=== PATIENT | male | born 1940 | race Caucasian/White ===

== ENCOUNTER 2022-07-06 17:41 | Emergency (ER) | payer OTHER ==
[~2022-07-06] VITALS: Ht 170.2 cm; Wt 86.4 kg
[2022-07-06] MEDS ORDERED: ACETAMINOPHEN 325 MG TAB PO ONE (17:55)
[2022-07-06 19:05] VITALS: BP 151/96
[2022-07-06] MEDS ORDERED: LIDOCAINE 5% (LIDODERM) PATCH TD ONE (19:45)
[2022-07-06] MEDS ORDERED: traMADol 50 MG TAB PO ONE (19:55)
[2022-07-06] MEDS ORDERED: traMADol 50 MG TAB (HOME DOSE PACK) PO ONE (20:05)
[2022-07-06] MEDS ORDERED: TRAM50TA2 PO (20:09)
[2022-07-06] MEDS ORDERED: LIDO5DIS41 TOP (20:09)
[2022-07-06] MEDS ORDERED: **NOTE PATIENT COMMENT** MISC XX SCH (21:00)
== END 2022-07-06 20:25 | disposition home or self-care (01) ==
LOC: EDBD 17:41 → M ED 17:41
DX: S22.41XA Multiple fractures of ribs, right side, initial encounter for closed fracture (principal); S20.211A Contusion of right front wall of thorax, initial encounter; W18.30XA Fall on same level, unspecified, initial encounter; Y92.018 Other place in single-family (private) house as the place of occurrence of the external cause; I10 Essential (primary) hypertension; E78.9 Disorder of lipoprotein metabolism, unspecified

== ENCOUNTER 2022-11-29 17:44 | Inpatient (IN) | payer MEDICARE ==
[~2022-11-29] VITALS: Ht 170.2 cm; Wt 81.1 kg
[~2022-11-29 17:44] MED LIST: LIDO5DIS41 TOP; TRAM50TA2 PO
[2022-11-29] MEDS ORDERED: ASPI81CH33 PO (18:09)
[2022-11-29] MEDS ORDERED: AMLO1TAB24 PO (18:09)
[2022-11-29] MEDS ORDERED: LISI20TA33 PO (18:09)
[2022-11-29] MEDS ORDERED: MELO7.5T35 PO (18:09)
[2022-11-29] MEDS ORDERED: ATOR40TA75 PO (18:09)
[2022-11-29] MEDS ORDERED: cloNIDine 0.1MG TABLET PO SCH (21:00)
[2022-11-29 21:30] LABS: BASO # 0.1 10^3/uL (0.0-0.2); BASO % 0.6 % (0.0-1.0); EOS # 0.2 10^3/uL (0.0-0.5); EOS % 2.3 % (0.0-3.0); HEMATOCRIT 32.2 % (42.0-52.0); HEMOGLOBIN 10.4 g/dl (13.5-17.5); LYMPH # 1.4 10^3/uL (1.5-5.0); MEAN CORPUSCULAR HEMOGLOBIN 27.7 pg (27.0-33.0); MEAN CORPUSCULAR HGB CONC 32.3 g/dl (32.0-36.5); MEAN CORPUSCULAR VOLUME 85.6 fl (80.0-96.0); MONO # 0.6 10^3/uL (0.0-0.8); MONO % 6.8 % (2.0-8.0); NEUTROPHILS # 6.3 10^3/uL (1.5-8.5); NEUTROPHILS % 73.5 % (36.0-66.0); PLATELET COUNT, AUTOMATED 306 10^3/uL (150-450); RED BLOOD COUNT 3.76 10^6/uL (4.30-6.10); WHITE BLOOD COUNT 8.6 10^3/uL (4.0-10.0)
[2022-11-29] MEDS ORDERED: NS 1,000 ML IV SCH (21:35)
[2022-11-29 21:58] LABS: ALBUMIN 3.3 G/DL (3.2-5.2); BILIRUBIN,DIRECT 0.1 MG/DL (<0.4); BILIRUBIN,TOTAL 0.4 MG/DL (0.3-1.2); CALCIUM LEVEL 8.5 MG/DL (8.3-10.6); CREATININE FOR GFR 5.78 MG/DL (0.70-1.30); GLOMERULAR FILTRATION RATE 10.1 (>35); POTASSIUM SERUM 4.4 MMOL/L (3.5-5.1); TOTAL PROTEIN 6.6 G/DL (5.7-8.2)
[2022-11-29 22:18] LABS: APPEARANCE, URINE MANUAL CLEAR (CLEAR); COLOR, URINE MANUAL YELLOW (YELLOW)
[2022-11-29 22:19] LABS: BILIRUBIN, URINE MANUAL NEGATIVE (NEGATIVE); BLOOD URINE MANUAL POSITIVE (NEGATIVE); GLUCOSE, URINE (UA) MANUAL NEGATIVE (NEGATIVE); KETONE, URINE MANUAL NEGATIVE (NEGATIVE); NITRITE, URINE MANUAL NEGATIVE (NEGATIVE); PH,URINE MAN 5.5 UNITS (5.0 - 7.0); PROTEIN, URINE MANUAL 2+ mg/dL (NEGATIVE); UROBILINOGEN, URINE MANUAL NORMAL (NORMAL)
[2022-11-29 22:20] LABS: LEUKOCYTE ESTERASE, URINE MAN NEGATIVE (NEGATIVE)
[2022-11-29 22:27] LABS: RBC, URINE TNTC /hpf (0-3)
[2022-11-29 22:28] LABS: GRANULAR CAST, URINE 0-1 /lpf; WBC, URINE 15-20 /hpf (0-3)
[2022-11-29 22:29] LABS: SQUAMOUS EPITHELIAL CELL URINE NONE SEEN /hpf (SMALL AMT)
[2022-11-29 22:30] LABS: HYALINE CAST, URINE NONE SEEN /lpf (0-1); MUCUS, URINE SMALL AMOUNT (NEGATIVE)
[2022-11-29 22:31] LABS: BACTERIA, URINE MOD AMOUNT
[2022-11-29 22:34] LABS: AMORPHOUS SEDIMENT, URINE SMALL AMOUNT (NEGATIVE)
[2022-11-29 23:06] LABS: RSV AMPLIFICATION NEGATIVE (NEGATIVE)
[2022-11-29] MEDS ORDERED: amLODIPine 5 MG TAB PO ONE (23:55)
[2022-11-30] MEDS ORDERED: NEXI1CAP4 PO (00:55)
[2022-11-30] MEDS ORDERED: DIPH-435 PO (00:55)
[2022-11-30] MEDS ORDERED: HOME MED LIST COMPLETE! XX SCH (01:00)
[2022-11-30] MEDS ORDERED: LABETALOL 100MG/20ML VIAL IV STA (01:43)
[2022-11-30] MEDS ORDERED: NS 1,000 ML IV SCH (01:45)
[2022-11-30 06:41] LABS: ALBUMIN 3.1 G/DL (3.2-5.2); BILIRUBIN,TOTAL 0.4 MG/DL (0.3-1.2); CALCIUM LEVEL 8.1 MG/DL (8.3-10.6); CREATININE FOR GFR 5.72 MG/DL (0.70-1.30); GLOMERULAR FILTRATION RATE 10.2 (>35); POTASSIUM SERUM 4.5 MMOL/L (3.5-5.1)
[2022-11-30 07:11] LABS: BASO # 0.1 10^3/uL (0.0-0.2); BASO % 0.7 % (0.0-1.0); EOS # 0.2 10^3/uL (0.0-0.5); EOS % 2.8 % (0.0-3.0); HEMATOCRIT 31.8 % (42.0-52.0); HEMOGLOBIN 10.2 g/dl (13.5-17.5); LYMPH % 14.1 % (24.0-44.0); MEAN CORPUSCULAR HEMOGLOBIN 27.8 pg (27.0-33.0); MEAN CORPUSCULAR HGB CONC 32.1 g/dl (32.0-36.5); MEAN CORPUSCULAR VOLUME 86.6 fl (80.0-96.0); MONO # 0.6 10^3/uL (0.0-0.8); NEUTROPHILS # 5.2 10^3/uL (1.5-8.5); NEUTROPHILS % 73.7 % (36.0-66.0); PLATELET COUNT, AUTOMATED 274 10^3/uL (150-450); RED BLOOD COUNT 3.67 10^6/uL (4.30-6.10); WHITE BLOOD COUNT 7.1 10^3/uL (4.0-10.0)
[2022-11-30] MEDS: cloNIDine 0.1MG TABLET PO SCH ×2 (10:27→20:18)
[2022-11-30] MEDS: ATORVASTATIN 20 MG TAB PO SCH (10:28)
[2022-11-30] MEDS: ASPIRIN 81MG CHEW TABLET PO SCH (10:28)
[2022-11-30] MEDS: HEPARIN SOD (PORCINE) 5000UNITS/ML 1ML VIAL/SYRINGE SC SCH ×2 (10:33→20:18)
[2022-11-30] MEDS: OMEPRAZOLE 20MG CAP PO SCH (10:34)
[2022-11-30 11:52] LABS: COMPLEMENT C3 93.6 MG/DL (90.0-170.0); COMPLEMENT C4 38.3 MG/DL (12-36)
[2022-11-30 15:00] VITALS: BP 147/67
[2022-11-30 16:00] VITALS: BP 133/62
[2022-11-30] MEDS ORDERED: amLODIPine 5 MG TAB PO SCH (17:00)
[2022-11-30 19:43] VITALS: BP 119/66
[2022-11-30 23:27] VITALS: BP 110/53
[2022-12-01 03:58] VITALS: BP 127/55
[2022-12-01 04:23] LABS: BASO % 0.4 % (0.0-1.0); EOS # 0.4 10^3/uL (0.0-0.5); EOS % 5.2 % (0.0-3.0); HEMATOCRIT 27.1 % (42.0-52.0); HEMOGLOBIN 8.6 g/dl (13.5-17.5); LYMPH # 1.1 10^3/uL (1.5-5.0); MEAN CORPUSCULAR HEMOGLOBIN 27.5 pg (27.0-33.0); MEAN CORPUSCULAR HGB CONC 31.7 g/dl (32.0-36.5); MEAN CORPUSCULAR VOLUME 86.6 fl (80.0-96.0); MONO # 0.7 10^3/uL (0.0-0.8); MONO % 9.9 % (2.0-8.0); NEUTROPHILS # 4.5 10^3/uL (1.5-8.5); NEUTROPHILS % 67.8 % (36.0-66.0); PLATELET COUNT, AUTOMATED 253 10^3/uL (150-450); RED BLOOD COUNT 3.13 10^6/uL (4.30-6.10); WHITE BLOOD COUNT 6.7 10^3/uL (4.0-10.0)
[2022-12-01 04:54] LABS: CALCIUM LEVEL 7.4 MG/DL (8.3-10.6); CREATININE FOR GFR 5.58 MG/DL (0.70-1.30); GLOMERULAR FILTRATION RATE 10.5 (>35); MAGNESIUM LEVEL 1.5 MG/DL (1.8-2.4); POTASSIUM SERUM 4.5 MMOL/L (3.5-5.1)
[2022-12-01 05:11] LABS: CHLORIDE,RANDOM URINE 82 MMOL/L; SODIUM,RANDOM URINE 88 MMOL/L
[2022-12-01 05:18] LABS: UREA NITROGEN RANDOM URINE 475 MG/DL
[2022-12-01 05:20] LABS: CREATININE,RANDOM URINE 98.8 MG/DL
[2022-12-01 05:23] LABS: TOTAL PROTEIN,RANDOM URINE 143.9 MG/DL (0.0-14.0)
[2022-12-01] MEDS ORDERED: MAG SULF 1GM/100ML (MAG RUN) 1 GM in IV 1 EA IV ONE ×2 (07:00→09:00)
[2022-12-01 07:50] VITALS: BP 129/65
[2022-12-01] MEDS: OMEPRAZOLE 20MG CAP PO SCH (07:51)
[2022-12-01] MEDS: ASPIRIN 81MG CHEW TABLET PO SCH (07:51)
[2022-12-01] MEDS: ATORVASTATIN 20 MG TAB PO SCH (07:51)
[2022-12-01] MEDS: ACETAMINOPHEN TAB 650MG DOSE (2X325MG) PO PRN (07:51)
[2022-12-01] MEDS: cloNIDine 0.1MG TABLET PO SCH ×2 (07:52→20:11)
[2022-12-01] MEDS: HEPARIN SOD (PORCINE) 5000UNITS/ML 1ML VIAL/SYRINGE SC SCH ×2 (07:52→20:11)
[2022-12-01 09:14] LABS: INR 1.07; PROTHROMBIN TIME 14.1 SECONDS (12.5-14.5)
[2022-12-01 09:27] LABS: COLLAGEN EPINEPHRINE 103 SECONDS (74-162)
[2022-12-01 11:57] VITALS: BP_SYST 103; BP_SYST 88; BP_DIAS 54
[2022-12-01 16:00] VITALS: BP 125/60
[2022-12-01 20:00] VITALS: BP 124/62
[2022-12-02 00:06] VITALS: BP 124/63
[2022-12-02 03:52] VITALS: BP 137/71
[2022-12-02 05:04] LABS: BASO % 0.3 % (0.0-1.0); EOS # 0.3 10^3/uL (0.0-0.5); EOS % 4.2 % (0.0-3.0); HEMATOCRIT 28.3 % (42.0-52.0); LYMPH # 1.1 10^3/uL (1.5-5.0); LYMPH % 15.5 % (24.0-44.0); MEAN CORPUSCULAR HEMOGLOBIN 27.7 pg (27.0-33.0); MEAN CORPUSCULAR HGB CONC 31.8 g/dl (32.0-36.5); MEAN CORPUSCULAR VOLUME 87.1 fl (80.0-96.0); MONO # 0.6 10^3/uL (0.0-0.8); MONO % 7.7 % (2.0-8.0); NEUTROPHILS # 5.1 10^3/uL (1.5-8.5); NEUTROPHILS % 71.6 % (36.0-66.0); PLATELET COUNT, AUTOMATED 258 10^3/uL (150-450); RED BLOOD COUNT 3.25 10^6/uL (4.30-6.10); WHITE BLOOD COUNT 7.1 10^3/uL (4.0-10.0)
[2022-12-02 05:37] LABS: BLOOD UREA NITROGEN 61 MG/DL (9-23); CALCIUM LEVEL 7.6 MG/DL (8.3-10.6); CARBON DIOXIDE LEVEL 19 MMOL/L (20-31); CHLORIDE LEVEL 110 MMOL/L (98-107); GLOMERULAR FILTRATION RATE 9.8 (>35); GLUCOSE, FASTING 86 MG/DL (74-106); MAGNESIUM LEVEL 1.9 MG/DL (1.8-2.4); POTASSIUM SERUM 4.7 MMOL/L (3.5-5.1); SODIUM LEVEL 139 MMOL/L (136-145)
[2022-12-02 05:59] LABS: ALBUMIN 2.7 G/DL (3.2-5.2); BILIRUBIN,DIRECT 0.1 MG/DL (<0.4); BILIRUBIN,TOTAL 0.3 MG/DL (0.3-1.2); TOTAL PROTEIN 5.4 G/DL (5.7-8.2)
[2022-12-02] MEDS ORDERED: HEPARIN 1,000UNITS/ML 10ML VIAL (FOR RADIOLOGY & DIALYSIS ONLY) IV PRN (06:50)
[2022-12-02] MEDS ORDERED: HEPARIN 1,000UNITS/ML 10ML VIAL (FOR RADIOLOGY & DIALYSIS ONLY) XX SCH (06:50)
[2022-12-02] MEDS ORDERED: SODIUM CHLORIDE 0.9% 1000ML IV PRN (06:50)
[2022-12-02 07:45] VITALS: BP 144/69
[2022-12-02] MEDS: cloNIDine 0.1MG TABLET PO SCH ×2 (08:19→20:08)
[2022-12-02] MEDS: OMEPRAZOLE 20MG CAP PO SCH (08:20)
[2022-12-02] MEDS: ATORVASTATIN 20 MG TAB PO SCH (08:20)
[2022-12-02] MEDS: HEPARIN SOD (PORCINE) 5000UNITS/ML 1ML VIAL/SYRINGE SC SCH ×2 (08:21→20:09)
[2022-12-02 08:26] LABS: CLOSTRIDIUM DIFFICILE PCR NEGATIVE (NEGATIVE)
[2022-12-02 08:59] LABS: PERCENT SATURATION 18.4 % (19.7-50.0)
[2022-12-02 11:04] LABS: HEPATITIS B SURFACE ANTIBODY POSITIVE (POSITIVE)
[2022-12-02 11:15] LABS: HEPATITIS B SURFACE ANTIGEN NEGATIVE (NEGATIVE)
[2022-12-02 11:36] LABS: HEPATITIS B CORE ANTIBODY IGM NEGATIVE (NEGATIVE)
[2022-12-02 11:54] VITALS: BP 129/60
[2022-12-02] MEDS ORDERED: fentaNYL 100 MCG/2 ML INJECTION As Ordered ONE (15:58)
[2022-12-02] MEDS ORDERED: HEPARIN 1,000UNITS/ML 10ML VIAL (FOR RADIOLOGY & DIALYSIS ONLY) As Ordered ONE (15:58)
[2022-12-02] MEDS ORDERED: MIDAZOLAM INJ 2MG/2ML VIAL As Ordered ONE (15:58)
[2022-12-02] MEDS ORDERED: LIDOCAINE 1% MDV 20ML VIAL As Ordered ONE (15:59)
[2022-12-02] MEDS ORDERED: ceFAZolin SOD 2 GM in IV 1 EA IV ONE (16:00)
[2022-12-02] MEDS ORDERED: ceFAZolin 2 GM/D5W 50 ML IV BAG As Ordered ONE (16:02)
[2022-12-02] MEDS ORDERED: ISOVUE-300 61% 100ML VIAL As Ordered ONE (16:35)
[2022-12-02 18:00] VITALS: BP 140/73
[2022-12-02 20:07] VITALS: BP 139/71
[2022-12-02] MEDS: ACETAMINOPHEN TAB 650MG DOSE (2X325MG) PO PRN (20:09)
[2022-12-03 00:51] VITALS: BP 124/60
[2022-12-03 04:53] VITALS: BP 120/56
[2022-12-03] MEDS: OMEPRAZOLE 20MG CAP PO SCH (06:04)
[2022-12-03 06:05] LABS: BASO % 0.5 % (0.0-1.0); EOS # 0.3 10^3/uL (0.0-0.5); EOS % 4.5 % (0.0-3.0); HEMATOCRIT 28.9 % (42.0-52.0); HEMOGLOBIN 9.2 g/dl (13.5-17.5); LYMPH # 1.1 10^3/uL (1.5-5.0); LYMPH % 16.3 % (24.0-44.0); MEAN CORPUSCULAR HEMOGLOBIN 27.7 pg (27.0-33.0); MEAN CORPUSCULAR HGB CONC 31.8 g/dl (32.0-36.5); MONO # 0.5 10^3/uL (0.0-0.8); MONO % 7.8 % (2.0-8.0); NEUTROPHILS # 4.5 10^3/uL (1.5-8.5); NEUTROPHILS % 70.1 % (36.0-66.0); PLATELET COUNT, AUTOMATED 239 10^3/uL (150-450); RED BLOOD COUNT 3.32 10^6/uL (4.30-6.10); WHITE BLOOD COUNT 6.4 10^3/uL (4.0-10.0)
[2022-12-03] MEDS: ATORVASTATIN 20 MG TAB PO SCH (06:06)
[2022-12-03] MEDS: HEPARIN SOD (PORCINE) 5000UNITS/ML 1ML VIAL/SYRINGE SC SCH ×2 (06:08→20:32)
[2022-12-03] MEDS: cloNIDine 0.1MG TABLET PO SCH ×2 (06:11→20:31)
[2022-12-03] MEDS: ACETAMINOPHEN TAB 650MG DOSE (2X325MG) PO PRN (06:11)
[2022-12-03] MEDS ORDERED: SODIUM CHLORIDE 0.9% 1000ML IV PRN (06:45)
[2022-12-03] MEDS ORDERED: HEPARIN 1,000UNITS/ML 10ML VIAL (FOR RADIOLOGY & DIALYSIS ONLY) XX SCH (06:45)
[2022-12-03] MEDS ORDERED: HEPARIN 1,000UNITS/ML 10ML VIAL (FOR RADIOLOGY & DIALYSIS ONLY) IV PRN (06:45)
[2022-12-03 07:28] VITALS: BP 107/57
[2022-12-03 08:55] LABS: CALCIUM LEVEL 8.3 MG/DL (8.3-10.6); CREATININE FOR GFR 6.04 MG/DL (0.70-1.30); GLOMERULAR FILTRATION RATE 9.6 (>35); MAGNESIUM LEVEL 1.7 MG/DL (1.8-2.4); POTASSIUM SERUM 4.8 MMOL/L (3.5-5.1)
[2022-12-03 12:00] VITALS: BP 129/65
[2022-12-03 16:00] VITALS: BP 124/65
[2022-12-03 17:08] LABS: FREE KAPPA LIGHT CHAINS SERUM 121.1 mg/L (3.3-19.4); FREE LAMBDA LIGHT CHAINS SERUM 64.7 mg/L (5.7-26.3); KAPPA/LAMBDA RATIO SERUM 1.87 (0.26-1.65)
[2022-12-03 20:00] VITALS: BP_SYST 142; BP_DIAS 67; BP_DIAS 92
[2022-12-04] VITALS: BP 128/71
[2022-12-04 04:25] VITALS: BP 127/65
[2022-12-04 05:15] LABS: BASO # 0.1 10^3/uL (0.0-0.2); BASO % 0.6 % (0.0-1.0); EOS # 0.4 10^3/uL (0.0-0.5); EOS % 4.5 % (0.0-3.0); HEMATOCRIT 29.3 % (42.0-52.0); HEMOGLOBIN 9.2 g/dl (13.5-17.5); LYMPH # 1.4 10^3/uL (1.5-5.0); LYMPH % 17.8 % (24.0-44.0); MEAN CORPUSCULAR HEMOGLOBIN 27.6 pg (27.0-33.0); MEAN CORPUSCULAR HGB CONC 31.4 g/dl (32.0-36.5); MONO # 0.7 10^3/uL (0.0-0.8); MONO % 8.6 % (2.0-8.0); NEUTROPHILS # 5.3 10^3/uL (1.5-8.5); NEUTROPHILS % 67.9 % (36.0-66.0); PLATELET COUNT, AUTOMATED 238 10^3/uL (150-450); RED BLOOD COUNT 3.33 10^6/uL (4.30-6.10); WHITE BLOOD COUNT 7.8 10^3/uL (4.0-10.0)
[2022-12-04 05:37] LABS: CALCIUM LEVEL 8.1 MG/DL (8.3-10.6); CREATININE FOR GFR 5.33 MG/DL (0.70-1.30); GLOMERULAR FILTRATION RATE 11.1 (>35); MAGNESIUM LEVEL 1.6 MG/DL (1.8-2.4); POTASSIUM SERUM 4.3 MMOL/L (3.5-5.1)
[2022-12-04] MEDS: ATORVASTATIN 20 MG TAB PO SCH (05:40)
[2022-12-04] MEDS: OMEPRAZOLE 20MG CAP PO SCH (05:41)
[2022-12-04] MEDS: cloNIDine 0.1MG TABLET PO SCH ×2 (05:44→20:33)
[2022-12-04] MEDS: HEPARIN SOD (PORCINE) 5000UNITS/ML 1ML VIAL/SYRINGE SC SCH (05:45)
[2022-12-04] MEDS ORDERED: HEPARIN 1,000UNITS/ML 10ML VIAL (FOR RADIOLOGY & DIALYSIS ONLY) XX SCH (06:50)
[2022-12-04] MEDS ORDERED: SODIUM CHLORIDE 0.9% 1000ML IV PRN (06:50)
[2022-12-04] MEDS ORDERED: HEPARIN 1,000UNITS/ML 10ML VIAL (FOR RADIOLOGY & DIALYSIS ONLY) IV PRN (06:50)
[2022-12-04] MEDS: FERROUS SULFATE 325MG TAB PO SCH (06:58)
[2022-12-04 08:00] VITALS: BP 102/60
[2022-12-04 13:12] VITALS: BP 104/60
[2022-12-04 16:00] VITALS: BP 110/60
[2022-12-04] MEDS ORDERED: MAGNESIUM OXIDE 400MG TAB (MAG-OX) PO ONE (16:05)
[2022-12-04] MEDS: ACETAMINOPHEN TAB 650MG DOSE (2X325MG) PO PRN (18:01)
[2022-12-04 20:31] VITALS: BP 103/57
[2022-12-05] VITALS (10 sets, daily range): BP systolic 109–135; BP diastolic 53–81
[2022-12-05 06:48] LABS: BASO # 0.1 10^3/uL (0.0-0.2); BASO % 0.5 % (0.0-1.0); EOS # 0.2 10^3/uL (0.0-0.5); EOS % 2.1 % (0.0-3.0); HEMATOCRIT 29.6 % (42.0-52.0); HEMOGLOBIN 9.7 g/dl (13.5-17.5); LYMPH # 1.6 10^3/uL (1.5-5.0); LYMPH % 17.5 % (24.0-44.0); MEAN CORPUSCULAR HEMOGLOBIN 28.3 pg (27.0-33.0); MEAN CORPUSCULAR HGB CONC 32.8 g/dl (32.0-36.5); MEAN CORPUSCULAR VOLUME 86.3 fl (80.0-96.0); MONO # 0.9 10^3/uL (0.0-0.8); MONO % 9.7 % (2.0-8.0); NEUTROPHILS # 6.5 10^3/uL (1.5-8.5); NEUTROPHILS % 69.3 % (36.0-66.0); PLATELET COUNT, AUTOMATED 240 10^3/uL (150-450); RED BLOOD COUNT 3.43 10^6/uL (4.30-6.10); WHITE BLOOD COUNT 9.3 10^3/uL (4.0-10.0)
[2022-12-05 07:21] LABS: CALCIUM LEVEL 8.4 MG/DL (8.3-10.6); CREATININE FOR GFR 4.17 MG/DL (0.70-1.30); GLOMERULAR FILTRATION RATE 14.7 (>35); MAGNESIUM LEVEL 1.6 MG/DL (1.8-2.4); POTASSIUM SERUM 4.2 MMOL/L (3.5-5.1)
[2022-12-05] MEDS ORDERED: MAGNESIUM OXIDE 400MG TAB (MAG-OX) PO ONE (07:35)
[2022-12-05] MEDS: FERROUS SULFATE 325MG TAB PO SCH (09:09)
[2022-12-05] MEDS: cloNIDine 0.1MG TABLET PO SCH ×2 (09:09→20:36)
[2022-12-05] MEDS: OMEPRAZOLE 20MG CAP PO SCH (09:09)
[2022-12-05] MEDS: ATORVASTATIN 20 MG TAB PO SCH (09:10)
[2022-12-05] MEDS: HEPARIN SOD (PORCINE) 5000UNITS/ML 1ML VIAL/SYRINGE SC SCH (21:06)
[2022-12-06 05:07] LABS: BASO % 0.4 % (0.0-1.0); EOS # 0.2 10^3/uL (0.0-0.5); EOS % 2.8 % (0.0-3.0); HEMATOCRIT 27.3 % (42.0-52.0); HEMOGLOBIN 8.9 g/dl (13.5-17.5); LYMPH % 11.8 % (24.0-44.0); MEAN CORPUSCULAR HEMOGLOBIN 28.1 pg (27.0-33.0); MEAN CORPUSCULAR HGB CONC 32.6 g/dl (32.0-36.5); MEAN CORPUSCULAR VOLUME 86.1 fl (80.0-96.0); MONO # 0.9 10^3/uL (0.0-0.8); MONO % 10.2 % (2.0-8.0); NEUTROPHILS # 6.3 10^3/uL (1.5-8.5); NEUTROPHILS % 74.1 % (36.0-66.0); PLATELET COUNT, AUTOMATED 189 10^3/uL (150-450); RED BLOOD COUNT 3.17 10^6/uL (4.30-6.10); WHITE BLOOD COUNT 8.5 10^3/uL (4.0-10.0)
[2022-12-06 05:40] LABS: CALCIUM LEVEL 8.1 MG/DL (8.3-10.6); CREATININE FOR GFR 5.37 MG/DL (0.70-1.30); MAGNESIUM LEVEL 1.7 MG/DL (1.8-2.4); POTASSIUM SERUM 4.5 MMOL/L (3.5-5.1)
[2022-12-06 06:00] VITALS: BP 128/68
[2022-12-06] MEDS: cloNIDine 0.1MG TABLET PO SCH (06:17)
[2022-12-06 06:26] VITALS: BP 128/88
[2022-12-06] MEDS: FERROUS SULFATE 325MG TAB PO SCH (06:26)
[2022-12-06] MEDS: OMEPRAZOLE 20MG CAP PO SCH (06:26)
[2022-12-06] MEDS: ATORVASTATIN 20 MG TAB PO SCH (06:26)
[2022-12-06] MEDS: HEPARIN SOD (PORCINE) 5000UNITS/ML 1ML VIAL/SYRINGE SC SCH (06:27)
[2022-12-06] MEDS ORDERED: HEPARIN 1,000UNITS/ML 10ML VIAL (FOR RADIOLOGY & DIALYSIS ONLY) XX SCH (07:20)
[2022-12-06] MEDS ORDERED: DARBEPOETIN 100MCG/0.5ML *DIALYSIS* SYRINGE IV SCH (07:20)
[2022-12-06] MEDS ORDERED: HEPARIN 1,000UNITS/ML 10ML VIAL (FOR RADIOLOGY & DIALYSIS ONLY) IV PRN (07:20)
[2022-12-06] MEDS ORDERED: SODIUM CHLORIDE 0.9% 1000ML IV PRN (07:20)
[2022-12-06] MEDS ORDERED: MAGN400T33 PO (10:32)
[2022-12-06] MEDS ORDERED: FERR1TAB8 PO (10:32)
[2022-12-06 14:00] VITALS: BP 138/79
[2022-12-06 15:09] LABS: ANTI DS-DNA AB Positive (Negative); ANTINUCLEAR ANTIBODIES DIRECT Negative (Negative); COMPLEMENT TOTAL (CH50) 57 U/mL (>41)
== END 2022-12-06 14:50 | disposition home or self-care (01) | DRG 674 ==
LOC: M ED 17:44 → M ED INP 11-30 01:44 → ENRESERV 11-30 03:56 → M PCU 11-30 14:29 → M MS5PR 12-05 00:52
PROVIDERS: ADMIT Internal Medicine; ATTEND Internal Medicine
PROC: 02HV33Z Insertion of Infusion Device into Superior Vena Cava, Percutaneous Approach (ICD-10-PCS; 2022-12-02)
PROC: 0JH63XZ Insertion of Tunneled Vascular Access Device into Chest Subcutaneous Tissue and Fascia, Percutaneous Approach (ICD-10-PCS; principal; 2022-12-02 16:30)
PROC: 5A1D70Z Performance of Urinary Filtration, Intermittent, Less than 6 Hours Per Day (ICD-10-PCS; 2022-12-03)
PROC: 0TB13ZX Excision of Left Kidney, Percutaneous Approach, Diagnostic (ICD-10-PCS; 2022-12-05)
DX: N17.9 Acute kidney failure, unspecified (principal); K80.10 Calculus of gallbladder with chronic cholecystitis without obstruction; E87.20 Acidosis, unspecified; I12.9 Hypertensive chronic kidney disease with stage 1 through stage 4 chronic kidney disease, or unspecified chronic kidney disease; E78.5 Hyperlipidemia, unspecified; M19.90 Unspecified osteoarthritis, unspecified site; D50.9 Iron deficiency anemia, unspecified; N18.30 Chronic kidney disease, stage 3 unspecified; R80.9 Proteinuria, unspecified; K21.9 Gastro-esophageal reflux disease without esophagitis; E83.42 Hypomagnesemia; Z87.891 Personal history of nicotine dependence; Z20.822 Contact with and (suspected) exposure to COVID-19; Z79.82 Long term (current) use of aspirin; Z79.899 Other long term (current) drug therapy; Z66 Do not resuscitate; R31.29 Other microscopic hematuria

== ENCOUNTER 2022-12-15 17:13 | Emergency (ER) | payer MEDICARE ==
[~2022-12-15] VITALS: Ht 170.2 cm; Wt 75.5 kg
[~2022-12-15 17:13] MED LIST changes: +AMLO1TAB24 PO; +ASPI81CH33 PO; +ATOR40TA75 PO; +DIPH-435 PO; +FERR1TAB8 PO; +LISI20TA33 PO; +MAGN400T33 PO; +MELO7.5T35 PO; +NEXI1CAP4 PO
[2022-12-15 17:54] LABS: BASO # 0.1 10^3/uL (0.0-0.2); BASO % 0.5 % (0.0-1.0); EOS # 0.1 10^3/uL (0.0-0.5); EOS % 1.3 % (0.0-3.0); HEMATOCRIT 28.1 % (42.0-52.0); HEMOGLOBIN 8.9 g/dl (13.5-17.5); LYMPH # 1.2 10^3/uL (1.5-5.0); LYMPH % 11.7 % (24.0-44.0); MEAN CORPUSCULAR HEMOGLOBIN 27.6 pg (27.0-33.0); MEAN CORPUSCULAR HGB CONC 31.7 g/dl (32.0-36.5); MONO # 0.9 10^3/uL (0.0-0.8); MONO % 8.8 % (2.0-8.0); NEUTROPHILS % 76.9 % (36.0-66.0); PLATELET COUNT, AUTOMATED 238 10^3/uL (150-450); RED BLOOD COUNT 3.23 10^6/uL (4.30-6.10); WHITE BLOOD COUNT 10.4 10^3/uL (4.0-10.0)
[2022-12-15 18:09] LABS: CALCIUM LEVEL 7.7 MG/DL (8.3-10.6); CREATININE FOR GFR 8.33 MG/DL (0.70-1.30); GLOMERULAR FILTRATION RATE 6.6 (>35); POTASSIUM SERUM 3.6 MMOL/L (3.5-5.1)
[2022-12-15] MEDS ORDERED: ACETAMINOPHEN 325 MG TAB PO ONE (18:40)
[2022-12-15] MEDS ORDERED: ISOVUE-370 76% 100ML VIAL As Ordered ONE (18:47)
[2022-12-15] MEDS ORDERED: AZITHROMYCIN 250MG TABLET PO ONE (20:35)
[2022-12-15] MEDS ORDERED: CEFU50TA PO ×2 (20:36→20:39)
[2022-12-15] MEDS ORDERED: AZIT500T5 PO (20:36)
[2022-12-15 20:45] VITALS: BP 116/59
[2022-12-15] MEDS ORDERED: CEFUROXIME 500 MG TAB PO ONE (21:00)
== END 2022-12-15 21:16 | disposition home or self-care (01) ==
LOC: EDBD 17:13 → M ED 17:13
DX: J18.9 Pneumonia, unspecified organism (principal); J44.9 Chronic obstructive pulmonary disease, unspecified; I70.0 Atherosclerosis of aorta; Z79.82 Long term (current) use of aspirin; Z79.899 Other long term (current) drug therapy
CPT/HCPCS: 71275; 80048; 85025; 87486; 87581; 87633; 87798; 93005; 99284; Q9967

== ENCOUNTER 2022-12-20 13:21 | Outpatient (CLI) | payer MEDICARE ==
[~2022-12-20] VITALS: Ht 170.2 cm; Wt 75.4 kg
[~2022-12-20 13:21] MED LIST changes: +AZIT500T5 PO; +CEFU50TA PO
[2022-12-20 13:40] VITALS: BP 106/57
[2022-12-20] MEDS ORDERED: methylPREDNISolone 500 MG, VIAL MATE ADAPTER 1 EACH in NS 250 ML IV ONE (14:00)
[2022-12-20 15:05] VITALS: BP 119/59
== END 2022-12-20 15:05 | disposition home or self-care (01) ==
LOC: M INFU 13:21
PROVIDERS: ATTEND Internal Medicine Nephrology
DX: M31.31 Wegener's granulomatosis with renal involvement (principal)
CPT/HCPCS: 96365; J2930

== ENCOUNTER 2022-12-23 13:55 | Outpatient (CLI) | payer MEDICARE ==
[2022-12-23 14:00] VITALS: BP 98/53
[2022-12-23] MEDS ORDERED: methylPREDNISolone 500 MG, VIAL MATE ADAPTER 1 EACH in NS 250 ML IV ONE (14:30)
== END 2022-12-23 15:10 | disposition home or self-care (01) ==
LOC: M INFU 13:55
PROVIDERS: ATTEND Internal Medicine Nephrology
DX: M31.31 Wegener's granulomatosis with renal involvement (principal)
CPT/HCPCS: 86480; 96365; J2930

== ENCOUNTER → 2022-12-23 | Outpatient (REF) | payer MEDICARE | LOC: M LAB REF 16:48 | PROVIDERS: ATTEND Internal Medicine Nephrology | DX: M31.31 Wegener's granulomatosis with renal involvement (principal) ==

== ENCOUNTER 2022-12-24 13:35 | Outpatient (CLI) | payer MEDICARE ==
[~2022-12-24] VITALS: Ht 170.2 cm; Wt 75.0 kg
[~2022-12-24 13:35] MED LIST changes: +methylPREDNISolone 500 MG, VIAL MATE ADAPTER 1 EACH in NS 250 ML IV ONE
[2022-12-24 13:40] VITALS: BP 154/81
[2022-12-24 15:10] VITALS: BP 162/75
== END 2022-12-24 15:10 | disposition home or self-care (01) ==
LOC: M INFU 13:35
PROVIDERS: ATTEND Internal Medicine Nephrology
DX: M31.31 Wegener's granulomatosis with renal involvement (principal)
CPT/HCPCS: 36592; 86480; 96365; J2930

== ENCOUNTER 2022-12-25 08:30 | Outpatient (CLI) | payer MEDICARE ==
[~2022-12-25] VITALS: Ht 170.2 cm; Wt 75.9 kg
[2022-12-25 08:30] VITALS: BP 127/58
[~2022-12-25 08:30] MED LIST changes: +ALBUTEROL SULFATE 2.5MG/0.5ML INH NEB SOLN INH PRN; +EPINEPHrine INJ 1 MG/ML 1ML AMP IM PRN; +NS 1,000 ML IV SCH; +NS IV ONE; +RITUXIMAB IV ONE; +diphenhydrAMINE 50MG/ML VIAL IV ONE; +diphenhydrAMINE 50MG/ML VIAL IV PRN; +methylPREDNISolone 125MG 2ML VIAL IV ONE; +methylPREDNISolone 125MG 2ML VIAL IV PRN; -methylPREDNISolone 500 MG, VIAL MATE ADAPTER 1 EACH in NS 250 ML IV ONE
[2022-12-25 10:00] VITALS: BP 138/98
[2022-12-25 10:30] VITALS: BP 138/63
[2022-12-25 11:00] VITALS: BP 141/64
[2022-12-25 13:00] VITALS: BP 161/72
[2022-12-25 13:10] VITALS: BP 161/72
== END 2022-12-25 13:01 | disposition home or self-care (01) ==
LOC: M INFU 08:30
PROVIDERS: ATTEND Internal Medicine Nephrology
DX: M31.31 Wegener's granulomatosis with renal involvement (principal)
CPT/HCPCS: 96413; 96415; J1200; J9312

== ENCOUNTER 2023-01-01 08:45 | Outpatient (CLI) | payer MEDICARE ==
[~2023-01-01] VITALS: Ht 170.2 cm; Wt 167.7 kg
[2023-01-01] VITALS (8 sets, daily range): BP systolic 116–164; BP diastolic 58–78
== END 2023-01-01 11:15 | disposition home or self-care (01) ==
LOC: M INFU 08:45
PROVIDERS: ATTEND Internal Medicine Nephrology
DX: M31.31 Wegener's granulomatosis with renal involvement (principal)
CPT/HCPCS: 96367; 96413; 96415; J1200; J9312

== ENCOUNTER 2023-01-03 13:41 | Inpatient (IN) | payer MEDICARE ==
[2023-01-03] VITALS (16 sets, daily range): BP systolic 103–140; BP diastolic 59–79; O2SAT 90
[~2023-01-03] VITALS: Ht 167.6 cm; Wt 78.6 kg
[~2023-01-03 13:41] MED LIST changes: -ALBUTEROL SULFATE 2.5MG/0.5ML INH NEB SOLN INH PRN; -EPINEPHrine INJ 1 MG/ML 1ML AMP IM PRN; -NS 1,000 ML IV SCH; -NS IV ONE; -RITUXIMAB IV ONE; -diphenhydrAMINE 50MG/ML VIAL IV ONE; -diphenhydrAMINE 50MG/ML VIAL IV PRN; -methylPREDNISolone 125MG 2ML VIAL IV ONE; -methylPREDNISolone 125MG 2ML VIAL IV PRN
[2023-01-03 14:19] LABS: BASO % 0.3 % (0.0-1.0); EOS # 0.1 10^3/uL (0.0-0.5); EOS % 0.8 % (0.0-3.0); LYMPH # 0.9 10^3/uL (1.5-5.0); LYMPH % 6.6 % (24.0-44.0); MEAN CORPUSCULAR HGB CONC 32.2 g/dl (32.0-36.5); MEAN CORPUSCULAR VOLUME 86.8 fl (80.0-96.0); MONO % 6.7 % (2.0-8.0); NEUTROPHILS # 11.9 10^3/uL (1.5-8.5); NEUTROPHILS % 84.2 % (36.0-66.0); PLATELET COUNT, AUTOMATED 251 10^3/uL (150-450); RED BLOOD COUNT 2.43 10^6/uL (4.30-6.10); WHITE BLOOD COUNT 14.1 10^3/uL (4.0-10.0)
[2023-01-03 14:26] LABS: HEMATOCRIT 21.1 % (42.0-52.0); HEMOGLOBIN 6.8 g/dl (13.5-17.5)
[2023-01-03 14:44] LABS: BLOOD UREA NITROGEN 48 MG/DL (9-23); CALCIUM LEVEL 7.7 MG/DL (8.3-10.6); CARBON DIOXIDE LEVEL 30 MMOL/L (20-31); CHLORIDE LEVEL 100 MMOL/L (98-107); CREATININE FOR GFR 6.36 MG/DL (0.70-1.30); GLUCOSE, FASTING 84 MG/DL (74-106); POTASSIUM SERUM 3.8 MMOL/L (3.5-5.1); SODIUM LEVEL 139 MMOL/L (136-145)
[2023-01-03 15:46] LABS: CK-MB VALUE MASS < 1.0 NG/ML (<3.6)
[2023-01-03 15:47] LABS: CPK CREATINE PHOSPHOKINASE 22 U/L (46-171); MB/CK RELATIVE INDEX 4.54 (< OR =4)
[2023-01-03 16:12] LABS: CK-MB VALUE MASS < 1.0 NG/ML (<3.6)
[2023-01-03 16:13] LABS: CPK CREATINE PHOSPHOKINASE 25 U/L (46-171)
[2023-01-03 16:16] LABS: ALBUMIN 2.9 G/DL (3.2-5.2); BILIRUBIN,DIRECT 0.1 MG/DL (<0.4); BILIRUBIN,TOTAL 0.4 MG/DL (0.3-1.2)
[2023-01-03 17:04] LABS: CK-MB VALUE MASS < 1.0 NG/ML (<3.6)
[2023-01-03 17:20] LABS: CPK CREATINE PHOSPHOKINASE 25 U/L (46-171)
[2023-01-03 17:34] LABS: TOTAL PROTEIN 5.5 G/DL (5.7-8.2)
[2023-01-03] MEDS ORDERED: SODIUM CHLORIDE 0.9% 1000ML IV PRN (18:00)
[2023-01-03] MEDS ORDERED: HEPARIN 1,000UNITS/ML 10ML VIAL (FOR RADIOLOGY & DIALYSIS ONLY) IV PRN (18:00)
[2023-01-03 18:25] LABS: ABG BASE EXCESS 5.2 (-2.0-2.0); ABG HCO3 28.3 MEQ/L (22.0-26.0); ABG O2 SATURATION 87.4 % (95.0-99.0); ABG PARTIAL PRESSURE CO2 34.6 mmHg (35.0-45.0); ABG PARTIAL PRESSURE O2 50.9 mmHg (75.0-100.0); ABG TOTAL CO2 29.3 MEQ/L (23.0-31.0)
[2023-01-03] MEDS ORDERED: MAGN400T2 PO (18:33)
[2023-01-03] MEDS ORDERED: MELO7.5T35 PO (18:33)
[2023-01-03] MEDS ORDERED: FERR325T3 PO (18:33)
[2023-01-03] MEDS ORDERED: HOME MED LIST COMPLETE! XX SCH (18:35)
[2023-01-03] MEDS ORDERED: methylPREDNISolone 1,000 MG, VIAL MATE ADAPTER 1 EACH in NS 250 ML IV SCH (18:40)
[2023-01-03] MEDS: IPRATROPIUM 0.5MG/ALBUTEROL 2.5MG INH SOL UD 3ML (DUONEB) NEB SCH ×2 (19:15→23:11)
[2023-01-03 19:42] LABS: RSV AMPLIFICATION NEGATIVE (NEGATIVE)
[2023-01-03] MEDS ORDERED: cefTRIAXone SOD 1 GM in D5W MINI-BAG PLUS 50 ML IV SCH (21:00)
[2023-01-04] VITALS (15 sets, daily range): BP systolic 106–155; BP diastolic 55–76; O2SAT 87–92
[2023-01-04] MEDS ORDERED: methylPREDNISolone 1,000 MG, VIAL MATE ADAPTER 1 EACH in NS 250 ML IV ONE ×3
[2023-01-04 01:10] LABS: MEAN CORPUSCULAR HEMOGLOBIN 28.7 pg (27.0-33.0); MEAN CORPUSCULAR HGB CONC 33.8 g/dl (32.0-36.5); MEAN CORPUSCULAR VOLUME 84.8 fl (80.0-96.0); PLATELET COUNT, AUTOMATED 202 10^3/uL (150-450); RED BLOOD COUNT 3.42 10^6/uL (4.30-6.10); WHITE BLOOD COUNT 17.6 10^3/uL (4.0-10.0)
[2023-01-04 01:50] LABS: HEMOGLOBIN 9.8 g/dl (13.5-17.5)
[2023-01-04] MEDS: IPRATROPIUM 0.5MG/ALBUTEROL 2.5MG INH SOL UD 3ML (DUONEB) NEB SCH ×6 (01:51→23:08)
[2023-01-04 06:36] LABS: VENOUS BASE EXCESS 3.9 (-2.0-2.0); VENOUS HCO3 26.7 MEQ/L (23.0-27.0); VENOUS O2 SATURATION 98.9 % (60.0-80.0); VENOUS PARTIAL PRESSURE CO2 33.4 mmHg (38.0-50.0); VENOUS PARTIAL PRESSURE O2 188.4 mmHg (30.0-50.0); VENOUS TOTAL CO2 27.7 MEQ/L (24.0-28.0)
[2023-01-04 06:42] LABS: BASO % 0.1 % (0.0-1.0); HEMATOCRIT 26.5 % (42.0-52.0); LYMPH # 0.2 10^3/uL (1.5-5.0); LYMPH % 1.9 % (24.0-44.0); MEAN CORPUSCULAR HEMOGLOBIN 28.5 pg (27.0-33.0); MEAN CORPUSCULAR VOLUME 83.9 fl (80.0-96.0); MONO # 0.1 10^3/uL (0.0-0.8); MONO % 0.9 % (2.0-8.0); NEUTROPHILS % 96.1 % (36.0-66.0); PLATELET COUNT, AUTOMATED 170 10^3/uL (150-450); RED BLOOD COUNT 3.16 10^6/uL (4.30-6.10); WHITE BLOOD COUNT 10.4 10^3/uL (4.0-10.0)
[2023-01-04 06:52] LABS: INR 1.06
[2023-01-04 07:18] LABS: ALBUMIN 2.6 G/DL (3.2-5.2); CALCIUM LEVEL 7.3 MG/DL (8.3-10.6); CREATININE FOR GFR 4.4 MG/DL (0.70-1.30); GLOMERULAR FILTRATION RATE 13.8 (>35); PHOSPHORUS LEVEL 3.3 MG/DL (2.4-5.1); POTASSIUM SERUM 3.7 MMOL/L (3.5-5.1)
[2023-01-04] MEDS: TIOTROPIUM INHALER/CAPSULE (SPIRIVA) INH SCH (07:38)
[2023-01-04] MEDS ORDERED: PANTOPRAZOLE 40MG TAB (PROTONIX) PO SCH (09:00)
[2023-01-04] MEDS ORDERED: VANCOMYCIN HCL 1,000 MG, VIAL MATE ADAPTER 1 EACH in NS 250 ML IV ONE (10:00)
[2023-01-04 10:47] LABS: ABG BASE EXCESS 2.4 (-2.0-2.0); ABG HCO3 24.7 MEQ/L (22.0-26.0); ABG O2 SATURATION 96.9 % (95.0-99.0); ABG PARTIAL PRESSURE CO2 30.6 mmHg (35.0-45.0); ABG PARTIAL PRESSURE O2 88.5 mmHg (75.0-100.0); ABG STANDARD HCO3 26.6 MEQ/L (22.0-26.0); ABG TOTAL CO2 25.6 MEQ/L (23.0-31.0); ABG pH (ARTERIAL) 7.525 UNITS (7.350-7.450)
[2023-01-04] MEDS ORDERED: CEFEPIME HCL 2 GM in D5W MINI-BAG PLUS 50 ML IV ONE (11:00)
[2023-01-04] MEDS: PANTOPRAZOLE 40MG VIAL IV SCH (11:20)
[2023-01-04 12:13] LABS: HEMOGLOBIN 9.2 g/dl (13.5-17.5)
[2023-01-04] MEDS ORDERED: VANCOMYCIN HCL 750 MG, VIAL MATE ADAPTER 1 EACH in D5W 250 ML IV ONE (13:00)
[2023-01-04] MEDS: methylPREDNISolone 1,000 MG, VIAL MATE ADAPTER 1 EACH in NS 250 ML IV SCH (13:21)
[2023-01-04] MEDS ORDERED: AZITHROMYCIN INJ 500 MG, VIAL MATE ADAPTER 1 EACH in NS 250 ML IV SCH (20:00)
[2023-01-04 20:47] LABS: HEMOGLOBIN 8.9 g/dl (13.5-17.5)
[2023-01-05] VITALS (12 sets, daily range): BP systolic 118–148; BP diastolic 55–72; PULSE 107; O2SAT 83–99
[2023-01-05] MEDS: IPRATROPIUM 0.5MG/ALBUTEROL 2.5MG INH SOL UD 3ML (DUONEB) NEB SCH ×6 (03:13→23:26)
[2023-01-05] MEDS ORDERED: MORPHINE 2 MG/ML 1ML VIAL IV ONE (04:00)
[2023-01-05] MEDS ORDERED: IPRATROPIUM 0.5MG/ALBUTEROL 2.5MG INH SOL UD 3ML (DUONEB) NEB ONE (04:20)
[2023-01-05] MEDS ORDERED: GI COCKTAIL 50ML BTL(HYOSCYAMINE/MAALOX/LIDOCAINE VISCOUS)(1:3:1) PO ONE (04:40)
[2023-01-05 04:41] LABS: BASO % 0.2 % (0.0-1.0); HEMATOCRIT 26.4 % (42.0-52.0); LYMPH # 0.5 10^3/uL (1.5-5.0); LYMPH % 4.2 % (24.0-44.0); MEAN CORPUSCULAR HEMOGLOBIN 28.5 pg (27.0-33.0); MEAN CORPUSCULAR HGB CONC 34.1 g/dl (32.0-36.5); MEAN CORPUSCULAR VOLUME 83.5 fl (80.0-96.0); MONO # 0.4 10^3/uL (0.0-0.8); MONO % 3.2 % (2.0-8.0); NEUTROPHILS # 10.3 10^3/uL (1.5-8.5); NEUTROPHILS % 91.3 % (36.0-66.0); PLATELET COUNT, AUTOMATED 180 10^3/uL (150-450); RED BLOOD COUNT 3.16 10^6/uL (4.30-6.10); WHITE BLOOD COUNT 11.3 10^3/uL (4.0-10.0)
[2023-01-05] MEDS ORDERED: ACETAMINOPHEN 1000MG 100ML IV BAG IV ONE (04:45)
[2023-01-05 04:48] LABS: ABG BASE EXCESS 1.5 (-2.0-2.0); ABG O2 SATURATION 92.7 % (95.0-99.0); ABG PARTIAL PRESSURE CO2 30.1 mmHg (35.0-45.0); ABG PARTIAL PRESSURE O2 63.4 mmHg (75.0-100.0); ABG STANDARD HCO3 25.7 MEQ/L (22.0-26.0); ABG TOTAL CO2 24.9 MEQ/L (23.0-31.0); ABG pH (ARTERIAL) 7.519 UNITS (7.350-7.450)
[2023-01-05 05:05] LABS: VANCOMYCIN RANDOM 23.4 UG/ML
[2023-01-05 05:16] LABS: ALBUMIN 2.9 G/DL (3.2-5.2); BLOOD UREA NITROGEN 55 MG/DL (9-23); CALCIUM LEVEL 7.6 MG/DL (8.3-10.6); CALCIUM LEVEL 8.1 MG/DL (8.3-10.6); CARBON DIOXIDE LEVEL 25 MMOL/L (20-31); CHLORIDE LEVEL 100 MMOL/L (98-107); CK-MB VALUE MASS < 1.0 NG/ML (<3.6); CPK CREATINE PHOSPHOKINASE 47 U/L (46-171); CREATININE FOR GFR 6.25 MG/DL (0.70-1.30); GLOMERULAR FILTRATION RATE 9.1 (>35); GLOMERULAR FILTRATION RATE 9.2 (>35); GLUCOSE, FASTING 147 MG/DL (74-106); MB/CK RELATIVE INDEX 2.12 (< OR =4); PHOSPHORUS LEVEL 4.9 MG/DL (2.4-5.1); POTASSIUM SERUM 3.6 MMOL/L (3.5-5.1); POTASSIUM SERUM 3.7 MMOL/L (3.5-5.1); SODIUM LEVEL 137 MMOL/L (136-145)
[2023-01-05] MEDS: TIOTROPIUM INHALER/CAPSULE (SPIRIVA) INH SCH (07:16)
[2023-01-05] MEDS: PANTOPRAZOLE 40MG VIAL IV SCH (09:14)
[2023-01-05 12:10] LABS: HEMATOCRIT 23.5 % (42.0-52.0)
[2023-01-05] MEDS: methylPREDNISolone 1,000 MG, VIAL MATE ADAPTER 1 EACH in NS 250 ML IV SCH (12:35)
[2023-01-05] MEDS ORDERED: VANCOMYCIN HCL 1,000 MG, VIAL MATE ADAPTER 1 EACH in D5W 250 ML IV SCH (16:00)
[2023-01-05 20:14] LABS: HEMATOCRIT 24.6 % (42.0-52.0); HEMOGLOBIN 8.3 g/dl (13.5-17.5)
[2023-01-06 00:03] VITALS: BP 119/61
[2023-01-06] MEDS ORDERED: MORPHINE 2 MG/ML 1ML VIAL IV PRN (01:45)
[2023-01-06] MEDS ORDERED: ONDANSETRON 4MG 2ML VIAL IV PRN (01:45)
[2023-01-06] MEDS ORDERED: ACETAMINOPHEN 650MG SUPP PR PRN (01:45)
[2023-01-06] MEDS ORDERED: IPRATROPIUM 0.5MG/ALBUTEROL 2.5MG INH SOL UD 3ML (DUONEB) NEB PRN (01:45)
[2023-01-06] MEDS ORDERED: SCOPOLAMINE 1MG TRANSDERMAL PATCH TOP PRN (01:45)
[2023-01-06] MEDS ORDERED: LORazepam 2 MG/ML 1ML VIAL IV PRN ×2 (01:45→04:10)
[2023-01-06] MEDS ORDERED: CEFEPIME HCL 2 GM in D5W MINI-BAG PLUS 50 ML IV SCH (17:00)
== END 2023-01-06 06:50 | disposition expired | DRG 542 ==
LOC: EDBD 13:41 → M ED 13:41 → M ED INP 17:42 → M PCU 23:31 → M ICU 01-05 04:33 → M PCU 01-05 06:09
PROVIDERS: ADMIT Student in an Organized Health Care Education/Training Program; ATTEND Student in an Organized Health Care Education/Training Program
PROC: 30233N1 Transfusion of Nonautologous Red Blood Cells into Peripheral Vein, Percutaneous Approach (ICD-10-PCS; principal; 2023-01-03)
DX: M31.31 Wegener's granulomatosis with renal involvement (principal); N18.6 End stage renal disease; J96.01 Acute respiratory failure with hypoxia; J15.6 Pneumonia due to other Gram-negative bacteria; I12.0 Hypertensive chronic kidney disease with stage 5 chronic kidney disease or end stage renal disease; J44.1 Chronic obstructive pulmonary disease with (acute) exacerbation; R04.89 Hemorrhage from other sites in respiratory passages; N17.9 Acute kidney failure, unspecified; J44.0 Chronic obstructive pulmonary disease with (acute) lower respiratory infection; D62 Acute posthemorrhagic anemia; R07.89 Other chest pain; E87.70 Fluid overload, unspecified; Z66 Do not resuscitate; M31.7 Microscopic polyangiitis; D63.1 Anemia in chronic kidney disease; E78.5 Hyperlipidemia, unspecified; K21.9 Gastro-esophageal reflux disease without esophagitis; M19.90 Unspecified osteoarthritis, unspecified site; Z99.2 Dependence on renal dialysis; Z87.891 Personal history of nicotine dependence; Z20.822 Contact with and (suspected) exposure to COVID-19; Z79.82 Long term (current) use of aspirin; Z79.899 Other long term (current) drug therapy